=== PATIENT | female | born 1980 | race African-American/Black ===

== ENCOUNTER 2017-06-20 06:10 | Day surgery (SDC) | payer OTHER ==
[2017-06-20] MEDS ORDERED: THROMBIN (BOVINE) 5,000 UNIT VIAL TP ONE ×2 (07:13→09:32)
[2017-06-20] MEDS ORDERED: methylPREDNISolone ACET (DEPO) 40 MG/1 ML VIAL ONE (07:13)
[2017-06-20] MEDS ORDERED: LIDOCAINE 1%/EPI 1:100000 (20 ML MULTI DOSE VIAL) ONE (07:13)
[2017-06-20] MEDS ORDERED: MIDAZOLAM HCL 2 MG/2 ML SINGLE DOSE VIAL ONE ×2 (07:30→09:00)
[2017-06-20] MEDS ORDERED: DEXAMETHASONE SOD PHOSPHATE/PF 10 MG/ML SDV ONE (07:30)
[2017-06-20] MEDS ORDERED: BUPIVACAINE HCL/PF (5 MG/ML) 30 ML VIAL IJ ONE (07:30)
[2017-06-20 07:31] VITALS: BMI 27.0
--- NOTE | 2017-06-20 07:34 | HP ---
History & Physical Update - History History: No Change - Physical Physical: No Change - Assessment Assessment: No Change - Plan Plan: No Change (Initial H&P completed by Steffi Meier DO on 05/04/17. No new complaints or medictaions. Low back pain radiating down right leg. Gait instability.)
[2017-06-20] MEDS ORDERED: oxyCODONE HCL 10 MG SUSTAINED ACTING TABLET PO STA (07:45)
[2017-06-20] MEDS ORDERED: ceFAZolin SODIUM 1 GM VIAL ONE (08:51)
[2017-06-20] MEDS ORDERED: BUPIVACAINE HCL/PF 0.5% (5MG/ML) 10 ML VIAL ONE (09:02)
[2017-06-20] MEDS ORDERED: LIDOCAINE 1%/EPI 1:100000 (50 ML MULTI DOSE VIAL) INF ONE (09:10)
[2017-06-20] MEDS ORDERED: LABETALOL HCL 5 MG/1 ML (100MG/20 ML VIAL) ONE (09:13)
[2017-06-20] MEDS ORDERED: GELATIN SPONGE,ABSORBABLE 1 GM PACKET TP ONE (09:33)
[2017-06-20] MEDS ORDERED: ONDANSETRON 4 MG/2 ML VIAL ONE (09:56)
[2017-06-20] MEDS ORDERED: DEXAMETHASONE SOD PHOSPHATE 4 MG/1 ML VIAL ONE (09:56)
[2017-06-20] MEDS ORDERED: methylPREDNISolone ACET (DEPO) 40 MG/1 ML VIAL IM ONE (10:41)
--- NOTE | 2017-06-20 10:54 | OP ---
Operative Note - Note: Operative Date: 06/20/17 Pre-Operative Diagnosis: L5/S1 spinal stenosis, L4/5 herniated disc, radiculopathy Operation: L5/S1 bilateral laminectomy with discectomy Post-Operative Diagnosis: Same as Pre-op Surgeon: Alpesh Santo Instrumentation Designer: Armani Curiel Anesthesiologist/VOICE WRITING REPORTER: Pramod Villalobos (TLIP in holding) Anesthesia: Spinal Specimens Removed: L5/S1 disc Estimated Blood Loss (mls): 20 Fluid Volume Replaced (mls): 1,100 Operative Report Dictated: Yes
--- NOTE | 2017-06-20 10:55 | SURG ---
Surgery Bread Room Hand Note Bread Room Hand: Armani Curiel PA-C Date of Service: 06/20/17 Diagnosis: L5/S1 spinal stenosis, L5/S1 herniated disc, radiculopathy Procedure: L5/S1 bilateral laminectomy with discectomy I was present for the entirety of the operative procedure. For further detail, please refer to operative report. Visit type - Case Type Case Type: Scheduled Admission
[2017-06-20] MEDS ORDERED: oxyCODONE HCL 5 MG TABLET PO PRN ×2 (12:39)
[2017-06-20] MEDS ORDERED: ONDANSETRON 4 MG/2 ML VIAL IVPUSH PRN (12:39)
[2017-06-20] MEDS ORDERED: LACTATED RINGERS SOLUTION 1,000 ML IV SCH (12:45)
[2017-06-20] MEDS ORDERED: oxyCODONE HCL 5 MG TABLET ONE (12:50)
[2017-06-20 13:56] VITALS: TEMP 97.8
[2017-06-20 15:12] VITALS: BP 132/78; PULSE 86
--- NOTE | 2017-06-20 19:26 | OP ---
DATE OF OPERATION: 06/20/2017 PREOPERATIVE DIAGNOSIS: Spinal stenosis at L5-S1. POSTOPERATIVE DIAGNOSIS: Spinal stenosis at L5-S1. PROCEDURE PERFORMED: Laminectomy at L5-S1. SURGEON: Alpesh Santo MD ELECTRIC MOTOR REPAIRING SUPERVISOR: NIK Smith ESTIMATED BLOOD LOSS: 50 mL INTRAVENOUS FLUIDS: Per Anesthesia. ANESTHESIA: Spinal/TLIP. COMPLICATIONS: None. DISPOSITION: Patient brought to the PACU in stable condition. INDICATIONS FOR SURGERY: The patient is a 36-year-old female who has been suffering from pain from her back down her right leg. X-rays and MRI were completed which noted that she had a herniated disk at L5-S1 on the right side. She had gone through an exhaustive course of treatment for this, which included medications, physical therapy as well as injections. Unfortunately, pain continued to persist despite all this. At this point, risks, benefits, and alternatives were discussed, and the patient consented to surgery. DESCRIPTION OF PROCEDURE: Patient was brought to the operating room by the anesthesia staff. After appropriate patient identification was performed, spinal anesthesia was given, and a TLIP block was also given. Patient was able to position herself prone onto the OR table. Two needles were placed into her back to iliana off the L5-S1 segment. X-ray was taken to confirm this as correct. [place] were removed, and 10 mL of lidocaine with epinephrine were injected into her back at this time. Her back was prepped and draped in a sterile manner. At this point, a timeout was completed. An incision was made from the top of L5 down to the bottom of S1. Dissection was carried down to the fascia. Fascia was split open at this time, and appropriate retractors were then placed in. A spinal needle was placed onto the L5 lamina to iliana off the L5-S1 level. An x-ray was taken to confirm this as correct. The needle was removed, and the microscope was brought in. At this point, the interspinous ligament at L5-S1 was removed. Portions of the L5-S1 lamina were removed. The flavum was identified, was removed. The nerve root was mobilized medially. A disk herniation was noted. It was removed. Portions of the inferior-superior facets were removed. By the end of the procedure, the S1 nerve roots appeared to be well mobilized and decompressed. All bleeding was well controlled. Steroid was placed over the nerve root. FloSeal was placed over that. The fascia was closed with a No. 1 Vicryl suture. Subcutaneous tissues were closed with 2-0 Vicryl suture. Skin was closed with 3-0 Monocryl suture. Dermabond was applied. Steri-Strips were applied. A sterile dressing was applied. Patient was placed supine on the OR bed and brought to the PACU in stable condition. Sourav QUINTERO/[id number]
--- NOTE | 2017-06-23 11:54 | PATH ---
Surgical Pathology Report Patient Name: KEON GARCIA [facility]. Rec. #: [id number] /Age/Gender: 1980 (Age: 36) / F Account: [id number] Location: [facility] Taken: 06/20/2017 Received: 06/20/2017 Reported: 06/23/2017 Physicians: Alpesh Santo M.D. Specimen(s) Received L5-S1 DISC Clinical History Spinal stenosis Final Diagnosis DISC, L5-S1, LAMINECTOMY: CARTILAGE WITH DEGENERATIVE CHANGES. Electronically Signed Diandra Zavala M.D. Gross Description Received in formalin labeled "L5-S1 disc," is a 2.5 x 2.0 x 0.3 cm aggregate of fuentes fragments of fibrocartilaginous tissue. The specimen is entirely submitted in one cassette. 06/21/201706/21/2017
== END 2017-06-20 14:20 | disposition home or self-care (01) ==
LOC: FASU 06:10
PROVIDERS: ATTEND Orthopaedic Surgery Orthopaedic Surgery of the Spine
PROC: 01NB0ZZ Release Lumbar Nerve, Open Approach (ICD-10-PCS; principal; 2017-06-20 08:15)
DX: M48.07 Spinal stenosis, lumbosacral region (principal)
CPT/HCPCS: 72100-TC-FY; 76000-TC-FY; 84703; 88304-TC; 94760